=== PATIENT | female | born 1945 | race Caucasian/White ===

== ENCOUNTER 2017-03-27 14:53 | Emergency (ER) | payer OTHER ==
[~2017-03-27] VITALS: Ht 152.4 cm; Wt 100.3 kg
[~2017-03-27 14:53] MED LIST: ADULT LOW DOSE81 M1 PO; AGGRENOX1 CAPSULE PO; ALLOPURINOL100 MG PO; AMLODIPINE BESY10 MG PO; ASPIR 8181 M1 PO; ATORVASTATIN CA40 MG PO; CEFTIN500 MG PO; DIOVAN320 MG PO; ENALAPRIL MALEA20 MG PO; FISH OIL 1,0001 EACH PO; FUROSEMIDE20 MG PO; GABAPENTIN300 MG PO; GLIPIZIDE ER2.5 MG PO; KLOR-CON 1010 ME1 PO; LOPRESSOR50 MG PO; METFORMIN HCL1000 MG PO; METFORMIN HCL500 MG PO; METOPROLOL TART50 MG PO; NEURONTIN300 MG PO; NORVASC10 MG PO; VERAPAMIL HCL180 MG PO; VERELAN 360 MG360 MG PO; ZOCOR40 MG PO
[2017-03-27 16:47] LABS: ADD MIUA? YES; BILIRUBIN NEGATIVE; BLOOD NEGATIVE; COLOR YELLOW ((YELLOW)); GLUCOSE (STRIP) NEGATIVE; KETONES NEGATIVE; LEUKOCYTES NEGATIVE; NITRITE NEGATIVE; PROTEIN (STRIP) >=500; SPECIFIC GRAVITY 1.018 (1.000-1.030); UROBILINOGEN 0.2 MG/DL (0.2-1.0)
[2017-03-27 16:50] LABS: EOSINOPHIL (%) 0.2 % (0-5); HEMATOCRIT 41.6 % (36.0-46.0); IMMATURE GRANULOCYTE (%) 0.4 % (0.0-0.7); INSTRUMENT ABS NEUTROPHIL CT 8.4 K/uL; LYMPHOCYTE COUNT 1.2 K/uL (1.0-2.8); MCH 31.1 PG (29.0-34.0); MCHC 32.7 G/DL (30.0-36.0); MEAN PLAT.VOLUME 10.9 uM^3 (9.5-12.4); MONOCYTE (%) 9.9 % (3-12); MONOCYTE COUNT 1.1 K/uL (0-0.8); NEUTROPHIL COUNT 8.4 K/uL (1.8-6.4); PLATELET COUNT 210 K/uL (156-360); RBC DIS.WIDTH-CV 14.8 % (11.8-14.6); RBC DIS.WIDTH-SD 51.8 % (39-53); RED BLOOD COUNT 4.38 M/uL (3.80-5.20); WHITE BLOOD COUNT 10.7 K/uL (4.1-10.2)
[2017-03-27 16:58] LABS: BACTERIA RARE /HPF; EPITHELIAL CELLS 1+ /HPF; HYALINE CASTS 0-5 /LPF; MUCUS TRACE /LPF; RED BLOOD CELLS 0-5 /HPF (0-5); UCUL ADDED? NO; WHITE BLOOD CELLS 0-5 /HPF (0-5)
[2017-03-27 17:04] LABS: CHLORIDE 105 mEq/L (99-109); POTASSIUM 4.2 mEq/L (3.7-5.4); SODIUM 138 mEq/L (136-147)
[2017-03-27 17:06] LABS: GLUCOSE 153 mg/dL (70-99)
[2017-03-27 17:07] LABS: ANION GAP 10 MEQ/L (2-14)
[2017-03-27 17:08] LABS: TOTAL BILIRUBIN 0.6 mg/dL (0.0-1.0)
[2017-03-27 17:09] LABS: ALKALINE PHOSPHATASE 89 IU/L (3-129)
[2017-03-27 17:10] LABS: GFR ESTIMATE (CALCULATED) > 59 mL/min/
[2017-03-27 17:11] LABS: UREA NITROGEN (BUN) 15 mg/dL (9-23)
[2017-03-27] MEDS ORDERED: OXYCODONE HCL5 M1 PO (19:19)
[2017-03-27 21:36] VITALS: BP 146/75
== END 2017-03-27 22:02 | disposition home or self-care (01) ==
LOC: EME 14:53
PROVIDERS: Emergency Medicine
DX: M17.9 Osteoarthritis of knee, unspecified (principal); M71.22 Synovial cyst of popliteal space [Baker], left knee; E66.01 Morbid (severe) obesity due to excess calories; Z68.41 Body mass index [BMI] 40.0-44.9, adult; Z86.73 Personal history of transient ischemic attack (TIA), and cerebral infarction without residual deficits; E11.9 Type 2 diabetes mellitus without complications; Z79.4 Long term (current) use of insulin; M10.9 Gout, unspecified; E78.5 Hyperlipidemia, unspecified; I10 Essential (primary) hypertension; F17.200 Nicotine dependence, unspecified, uncomplicated; Z79.84 Long term (current) use of oral hypoglycemic drugs; Z79.82 Long term (current) use of aspirin
CPT/HCPCS: 73564; 80053; 81003; 85025; 93971; 99281; 99285; J2270; J7030